=== PATIENT | male | born 1970 | race Caucasian/White ===

== ENCOUNTER 2016-11-02 14:00 | Outpatient (RCR) | payer BC | END 2016-11-27 | disposition home or self-care (01) | LOC: PTY 14:00 | DX: M54.2 Cervicalgia (principal) ==

== ENCOUNTER 2017-11-05 06:35 | Day surgery (SDC) | payer BC ==
--- NOTE | 2017-11-01 15:37 | Diagnostic Imaging Report ---
Indication: Dyspnea Comparison: None 2 views of the chest obtained. Findings: Cardiomediastinal silhouette and pulmonary vascularity are within normal limits for age. The diaphragmatic contour is smooth and costophrenic angles are sharp. No pleural effusions are identified. The bones are osteopenic. Impression: No acute disease
--- NOTE | 2017-11-04 18:41 | Pre-Procedure Note/Attestation ---
Pre-Procedure Note/Attestation Complete Prior to Procedure Planned Procedure: right Procedure Narrative: Right ear canalplasty Indications for Procedure Pre-Operative Diagnosis: right ear canal stenosis Attestation I attest that I discussed the nature of the procedure; its benefits; risks and complications; and alternatives (and the risks and benefits of such alternatives ), prior to the procedure, with the patient (or the patient's legal associate financial representative). I attest that, if there was a reasonable possibility of needing a blood transfusion, the patient (or the patient's legal associate financial representative) was given the [facility] standardized written summary, pursuant to the [place] Blood Safety Act ([place] Health and Safety Code # 1645, as amended). I attest that I re-evaluated the patient just prior to the surgery and that there has been no change in the patient's H&P, done by Dr. Huitron-faxed over on 11/04/17 to Cookie. AUSTIN BRINK Nov 04, 2017 18:41
--- NOTE | 2017-11-04 18:44 | Brief Operative Note ---
Immediate Post Operative Note Operative Note Chief Complaint: right ear canal stenosis Pre-op Diagnosis: right ear canal stenosis Post-op Diagnosis: same as pre-op Surgeon: Austin Brink Riddler Operator: none Additional Surgeons: none Anesthesia: MAC Specimen: yes Complications: none Condition: stable Fluids: D5LR Estimated Blood Loss: volume - 5cc Drains: none Packing: neosporin ointment Implant(s) used?: No AUSTIN BRINK Nov 04, 2017 18:44
[2017-11-05] VITALS (8 sets, daily range): BP systolic 114–134; BP diastolic 65–81
[~2017-11-05] VITALS: Ht 198.1 cm; Wt 99.9 kg
[~2017-11-05 06:35] MED LIST: Dexamethasone 4mg/ml vial IVP ONE; ceFAZolin sod 1 GM in NS 55 ML IV ONE
[2017-11-05] MEDS ORDERED: CIALIS5 MG PO (08:06)
[2017-11-05] MEDS ORDERED: LEXAPRO10 MG ORAL (08:06)
[2017-11-05] MEDS ORDERED: TAMSULOSIN HCL0.4 MG ORAL (08:06)
[2017-11-05] MEDS ORDERED: EPINEPHrine 1mg/1ml Amp ONE (09:13)
[2017-11-05] MEDS ORDERED: Bacitracin Oint 15gm Tube TOPIC ONE (09:13)
[2017-11-05] MEDS ORDERED: Lidocaine 1% Plain 30 ml INJ ONE (09:13)
[2017-11-05] MEDS ORDERED: Bupivacaine 0.25% Inj 30ml INJ ONE (09:13)
[2017-11-05] MEDS ORDERED: LR 1000ml ONE (10:00)
[2017-11-05] MEDS ORDERED: Sterile Water Irrig 1000ml IRRIG ONE (10:00)
[2017-11-05] MEDS ORDERED: NS Irrig 1000ml ONE (10:00)
[2017-11-05] MEDS ORDERED: Propofol 200mg/20ml IV ONE (10:00)
--- NOTE | 2017-11-05 10:37 | Discharge Instructions ---
Discharge Instructions Discharge Instructions Follow up with: 11/12/17 1:15PM Diet: regular Resume Normal Activity?: No Activity: light activity Pneumonia Vaccine: pt refused vaccine Influenza Vaccine (Jun to Nov): pt refused vaccine Follow Up Orders pt has printed instructions re post op care-we have reviewed this AM He also has Rx for [place]-given to him today. No antibiotics, already in ear-Ciprodex and polysporin ointment. Return to Work/School on: Nov 19, 2017 For Surgical Patients Dressing Care: may change Contact your physician for: bleeding, pain, tenderness, redness, swelling, yellowish discharge in the op. site For Congestive Heart Failure Reminder Report to your physician any weight gain of 5 pounds or more in one week. AUSTIN BRINK Nov 05, 2017 10:37
--- NOTE | 2017-11-05 10:42 | Anethesia Preoperative Eval ---
Anesthesia Pre-op PMH/ROS General Date of Evaluation: Nov 05, 2017 Time of Evaluation: 09:00 ASA Score: ASA 1 Mallampati Score Class I : Soft palate, uvula, fauces, pillars visible Class II: Soft palate, uvula, fauces visible Class III: Soft palate, base of uvula visible Class IV: Only hard plate visible Mallampati Classification: Class I Allergies: Coded Allergies: No Known Allergies (Unverified , 11/05/17) Anesthesia Pre-op Phys. Exam Physician Exam Last Vital Signs Date Time Temp Pulse Resp B/P (MAP) Pulse Ox O2 Delivery O2 Flow Rate FiO2 11/05/17 08:11 97.4 46 18 114/68 98 Room Air Airway Exam Mallampati Score: Class I Magnus Patterson MD Nov 05, 2017 10:42
--- NOTE | 2017-11-05 10:42 | Immediate Post-Op Evaluation ---
Immediate Post-Op Evalulation Immediate Post-Op Evalulation Procedure: right ear canal plasty Date of Evaluation: Nov 05, 2017 Time of Evaluation: 10:41 Nausea: No Vomiting: No Magnus Patterson MD Nov 05, 2017 10:41
[2017-11-05] MEDS ORDERED: HYDROmorphone 1mg/ml Carpuject SUBQ PRN (10:45)
[2017-11-05] MEDS ORDERED: Norco 5mg/325mg tab ORAL PRN (10:45)
[2017-11-05] MEDS ORDERED: Ketorolac 30mg Inj IV PRN (10:45)
[2017-11-05] MEDS ORDERED: fentaNYL 100 mcg/2 mL IV PRN (10:45)
--- NOTE | 2017-11-05 17:45 | Operative Note - Dictated ---
SURGEON: Juancho Philip M.D. APPLICATIONS SUPPORT LEAD: None. ANESTHESIOLOGIST: Dr. Patterson. ANESTHESIA: Oral endotracheal anesthesia and 1 mL 1% lidocaine 1000 epinephrine. PREOPERATIVE DIAGNOSIS: Right ear canal stenosis. POSTOPERATIVE DIAGNOSIS: Right ear canal stenosis. FINDINGS: Right ear canal stenosis. PROCEDURE: Repair of right ear canal stenosis transcanal approach. TECHNIQUE: The patient was prepped and draped in usual manner. Time-out was performed and all agreed as the equipment and procedure and medications needed to proceed. I cleaned out the ear with alcohol suctioned clean and I then injected the aforementioned lidocaine epinephrine mixture. I then proceeded to use a [place] blade to develop a flap, lateral part of the ear canal and then took this down with a small [place]. Please note that I cover the ear drum with Gelfoam prior to this, so there was Gel-Foam then the skin flap retracted medially and then Gel-Foam placed on top of that. I then used a small osteotome and removed excess cartilaginous tissue that was blocking the canal. This was removed and sent for permanent section. I next irrigated the ear an cleaned out and suctioned it. The Gel-Foam was removed. The eardrum was intact. The flaps had been brought laterally and placed back against the wall of the ear canal, which was now more open by at least 50%. I then proceeded to place Gel-Foam soaked in Ciprodex from the ear drum laterally and so it went past the area where the flap had been cut earlier with a [place] blade. I then injected into the middle of the ear canal, 1 mL of Polysporin ointment. Piece cotton was then placed on the ear. Sponge and needle count was correct. Estimated blood loss was less than 5 mL. Counts, none. Drains, none. The patient was awake and alert, and stable and extubated in the operating room prior to transfer to the recovery room where he appears to be fine. Juancho Philip M.D. DR: BEBETO JOB#: [id number] CC:
== END 2017-11-05 12:20 | disposition home or self-care (01) ==
LOC: SUR 06:35 → EDSTATUS 10:00 → SUR 12:20
DX: H61.301 Acquired stenosis of right external ear canal, unspecified (principal); N40.0 Benign prostatic hyperplasia without lower urinary tract symptoms; N52.9 Male erectile dysfunction, unspecified; L73.2 Hidradenitis suppurativa; F17.210 Nicotine dependence, cigarettes, uncomplicated; M85.88 Other specified disorders of bone density and structure, other site
CPT/HCPCS: 69310; 71046; J0171; J0690; J1100; J2001; J2704; J3490; J7120; 94003; 94150